=== PATIENT | female | born 1975 | race Caucasian/White ===

== ENCOUNTER 2023-11-30 09:40 | Outpatient (OUT) | payer OTHER, SELFPAY ==
--- NOTE | 2023-11-30 | XR_ITS ---
The [address] [address] Patient Name: LANNY GOMEZ MRN: [id number] date: 1975 Sex: F Assigned Patient Location: Current Patient Location: Accession/Order Number: [id number] Exam Date: 11/30/2023 09:50 Report Date: 12/01/2023 06:02 At the request of: CARLY ASHRAF Procedure: XR ankle RT min 3V PROCEDURE: XR foot RT min 3V, XR ankle RT min 3V HISTORY: RIGHT FOOT PAIN COMPARISON: None. FINDINGS: BONES:Slight asymmetric narrowing of the medial aspect of the tibiotalar joints and subtle lucency deep to the medial articular surface of the talus. Degenerative changes and bone spurring at the medial malleolus-talus joint. Mild degenerative changes the midfoot. Mild bunion formation and degenerative changes the first metatarsophalangeal joint. Large calcaneal plantar spur.. SOFT TISSUES:No visible soft tissue swelling. EFFUSION:None visible. OTHER: Negative. XR/XR ankle RT min 3V IMPRESSION: 1. Slight asymmetric joint space narrowing and findings suspicious for subchondral defect involving medial margin of talar dome. Consider MRI for further evaluation. 2. Multifocal mild degenerative changes, most notable involving the first metatarsophalangeal joint. Electronically authenticated by: LEOPOLDO DE LA TORRE Date: 12/01/2023 06:02
--- NOTE | 2023-11-30 | XR_ITS ---
The [address] [address] Patient Name: LANNY GOMEZ MRN: [id number] date: 1975 Sex: F Assigned Patient Location: Current Patient Location: Accession/Order Number: [id number] Exam Date: 11/30/2023 09:50 Report Date: 12/01/2023 06:02 At the request of: CARLY ASHRAF Procedure: XR foot RT min 3V PROCEDURE: XR foot RT min 3V, XR ankle RT min 3V HISTORY: RIGHT FOOT PAIN COMPARISON: None. FINDINGS: BONES:Slight asymmetric narrowing of the medial aspect of the tibiotalar joints and subtle lucency deep to the medial articular surface of the talus. Degenerative changes and bone spurring at the medial malleolus-talus joint. Mild degenerative changes the midfoot. Mild bunion formation and degenerative changes the first metatarsophalangeal joint. Large calcaneal plantar spur.. SOFT TISSUES:No visible soft tissue swelling. EFFUSION:None visible. OTHER: Negative. XR/XR foot RT min 3V IMPRESSION: 1. Slight asymmetric joint space narrowing and findings suspicious for subchondral defect involving medial margin of talar dome. Consider MRI for further evaluation. 2. Multifocal mild degenerative changes, most notable involving the first metatarsophalangeal joint. Electronically authenticated by: LEOPOLDO DE LA TORRE Date: 12/01/2023 06:02
== END 2023-11-30 09:41 | disposition home or self-care (01) ==
PROVIDERS: Family Provider Family Medicine; Visit Provider Physician Assistant
DX: M25.571 Pain in right ankle and joints of right foot (principal); M19.071 Primary osteoarthritis, right ankle and foot
CPT/HCPCS: 73610; 73630